=== PATIENT | male | born 1945 | race Caucasian/White ===

== ENCOUNTER 2022-04-13 15:31 | Inpatient (IN) | payer MEDICARE ==
[~2022-04-13] VITALS: Ht 175.3 cm; Wt 83.9 kg
[~2022-04-13 15:31] MED LIST: CLOPIDOGREL75 MG PO; CRESTOR20 MG PO; LISINOPRIL20 MG PO; VITAMIN D21250 MCG PO
[2022-04-13 17:35] LABS: RED BLOOD COUNT 3.89 M/UL (4.20-5.50); WHITE BLOOD COUNT 10.1 K/UL (4.5-11.0)
[2022-04-13 17:58] LABS: BUN/CREATININE RATIO 22 (0-10)
[2022-04-14 06:50] LABS: HEMOGLOBIN 11.6 gm/dl (14.0-17.5); RED BLOOD COUNT 3.74 M/UL (4.20-5.50); WHITE BLOOD COUNT 7.7 K/UL (4.5-11.0)
[2022-04-14 07:20] LABS: BUN/CREATININE RATIO 23 (0-10)
[2022-04-15 12:13] LABS: HEMOGLOBIN 11.1 gm/dl (14.0-17.5); RED BLOOD COUNT 3.57 M/UL (4.20-5.50)
[2022-04-15 12:36] LABS: BUN/CREATININE RATIO 31 (0-10)
[2022-04-15] MEDS ORDERED: ASCORBIC ACID500 MG PO (18:25)
[2022-04-15] MEDS ORDERED: AMLODIPINE BESY10 MG PO (18:25)
[2022-04-15] MEDS ORDERED: OMEPRAZOLE20 MG PO (18:27)
[2022-04-15] MEDS ORDERED: METFORMIN HCL500 MG PO (18:27)
[2022-04-15] MEDS ORDERED: CETIRIZINE HCL10 MG PO (18:28)
[2022-04-15] MEDS ORDERED: SERTRALINE HCL100 MG PO (18:28)
[2022-04-15] MEDS ORDERED: DONEPEZIL HCL10 MG PO (18:29)
[2022-04-15] MEDS ORDERED: NAMENDA10 MG PO (18:29)
[2022-04-15] MEDS ORDERED: LISINOPRIL40 MG PO (18:30)
[2022-04-15] MEDS ORDERED: BREO ELLIPTA 11 EACH INH (18:31)
[2022-04-15] MEDS ORDERED: OLANZAPINE5 MG PO (18:31)
[2022-04-15] MEDS ORDERED: ASPIRIN EC81 MG PO (18:31)
[2022-04-15] MEDS ORDERED: ALBUTEROL2.5 MG/3 M INH (18:32)
[2022-04-15] MEDS ORDERED: FERROUS SULFAT324 MG PO (18:32)
[2022-04-16 06:39] LABS: HEMOGLOBIN 10.5 gm/dl (14.0-17.5); RED BLOOD COUNT 3.39 M/UL (4.20-5.50)
[2022-04-16 06:49] LABS: WHITE BLOOD COUNT 6.8 K/UL (4.5-11.0)
[2022-04-16 07:03] LABS: BUN/CREATININE RATIO 23 (0-10)
--- NOTE | 2022-04-16 11:09 | NUR ---
PATIENT VERY DROWSY AND HARD TO AROUSE THIS AM. [employer] BUILDER STATED THAT PATIENT WAS MUCH MORE ALERT YESTERDAY DAY. DR. NICHOLS MADE AWARE OF PATIENT STATUS. STATED SHE WOULD TAKE A LOOK AT HIS MEDS AND PUT IN NEW ORDERS IF NECESSARY. WILL CONTINUE TO MONITOR PATIENT.
[2022-04-17 06:27] LABS: HEMOGLOBIN 10.3 gm/dl (14.0-17.5); RED BLOOD COUNT 3.29 M/UL (4.20-5.50); WHITE BLOOD COUNT 6.4 K/UL (4.5-11.0)
[2022-04-17 06:47] LABS: BUN/CREATININE RATIO 19 (0-10)
[2022-04-18 02:59] LABS: HEMOGLOBIN 10.5 gm/dl (14.0-17.5); RED BLOOD COUNT 3.31 M/UL (4.20-5.50); WHITE BLOOD COUNT 7.5 K/UL (4.5-11.0)
[2022-04-18 03:18] LABS: BUN/CREATININE RATIO 23 (0-10)
[2022-04-19 06:21] LABS: RED BLOOD COUNT 3.57 M/UL (4.20-5.50); WHITE BLOOD COUNT 6.7 K/UL (4.5-11.0)
[2022-04-19 07:24] LABS: BUN/CREATININE RATIO 37 (0-10)
[2022-04-21 05:59] LABS: HEMOGLOBIN 9.5 gm/dl (14.0-17.5); WHITE BLOOD COUNT 7.3 K/UL (4.5-11.0)
[2022-04-21 06:00] LABS: RED BLOOD COUNT 3.01 M/UL (4.20-5.50)
[2022-04-21 06:55] LABS: BUN/CREATININE RATIO 32 (0-10)
[2022-04-22 06:39] LABS: HEMOGLOBIN 9.7 gm/dl (14.0-17.5); RED BLOOD COUNT 3.14 M/UL (4.20-5.50); WHITE BLOOD COUNT 6.1 K/UL (4.5-11.0)
[2022-04-22 07:25] LABS: BUN/CREATININE RATIO 27 (0-10)
[2022-04-23 06:59] LABS: BUN/CREATININE RATIO 25 (0-10)
== END 2022-04-23 12:55 | disposition home health service (06) | DRG 689 ==
LOC: ER1 15:31 → MED SURG 4 22:15 → CDU 22:15 → MED SURG 4 04-14 00:51
PROVIDERS: Internal Medicine; Physician Assistant; ADMIT Internal Medicine
PROC: B24BZZZ Ultrasonography of Heart with Aorta (ICD-10-PCS; principal; 2022-04-20)
DX: N30.00 Acute cystitis without hematuria (principal); G93.41 Metabolic encephalopathy; J18.9 Pneumonia, unspecified organism; Z16.21 Resistance to vancomycin; J44.0 Chronic obstructive pulmonary disease with (acute) lower respiratory infection; F03.90 Unspecified dementia, unspecified severity, without behavioral disturbance, psychotic disturbance, mood disturbance, and anxiety; I25.10 Atherosclerotic heart disease of native coronary artery without angina pectoris; E11.9 Type 2 diabetes mellitus without complications; L89.329 Pressure ulcer of left buttock, unspecified stage; L89.319 Pressure ulcer of right buttock, unspecified stage; L89.122 Pressure ulcer of left upper back, stage 2; L89.112 Pressure ulcer of right upper back, stage 2; R13.10 Dysphagia, unspecified; R26.89 Other abnormalities of gait and mobility; I10 Essential (primary) hypertension; Z20.822 Contact with and (suspected) exposure to COVID-19; F32.A Depression, unspecified; Z86.73 Personal history of transient ischemic attack (TIA), and cerebral infarction without residual deficits; Z99.81 Dependence on supplemental oxygen; Z98.890 Other specified postprocedural states; Z80.8 Family history of malignant neoplasm of other organs or systems; Z79.899 Other long term (current) drug therapy; Z79.82 Long term (current) use of aspirin
CPT/HCPCS: ECHO; 0240U; 36415; 36600; 70450; 70551; 71045; 80048; 80053; 80076; 81001; 82140; 82550; 82553; 82803; 82962; 83605; 83735; 84484; 85025; 85027; 87040; 87077; 87086; 87186; 92526; 92610; 93005; 93306; 93880; 94640; 94664; 94760; 96365; 96366; 96368; 96372; 96375; 96376; 97110-GP-CQ; 97162; 97166; 97530; 97530-GP-CQ; 99285; G0378; J0696; J0878; J1650; J3370; J7070

== ENCOUNTER 2022-05-25 14:28 | Inpatient (IN) | payer MEDICARE ==
[~2022-05-25] VITALS: Ht 195.6 cm; Wt 83.9 kg
[~2022-05-25 14:28] MED LIST changes: +ALBUTEROL2.5 MG/3 M INH; +AMLODIPINE BESY10 MG PO; +ASCORBIC ACID500 MG PO; +ASPIRIN EC81 MG PO; +BREO ELLIPTA 11 EACH INH; +CETIRIZINE HCL10 MG PO; +DONEPEZIL HCL10 MG PO; +FERROUS SULFAT324 MG PO; +LISINOPRIL40 MG PO; +METFORMIN HCL500 MG PO; +NAMENDA10 MG PO; +OLANZAPINE5 MG PO; +OMEPRAZOLE20 MG PO; +SERTRALINE HCL100 MG PO
[2022-05-25 16:20] LABS: HEMOGLOBIN 13.1 gm/dl (14.0-17.5); RED BLOOD COUNT 4.18 M/UL (4.20-5.50); WHITE BLOOD COUNT 11.4 K/UL (4.5-11.0)
[2022-05-25 16:53] LABS: BUN/CREATININE RATIO 19 (0-10)
[2022-05-26 08:29] LABS: BUN/CREATININE RATIO 20 (0-10)
[2022-05-26 09:13] LABS: RED BLOOD COUNT 3.81 M/UL (4.20-5.50); WHITE BLOOD COUNT 11.7 K/UL (4.5-11.0)
[2022-05-26] MEDS ORDERED: TRAMADOL HCL50 MG PO (11:47)
[2022-05-26] MEDS ORDERED: PRAVASTATIN SOD80 MG PO (11:50)
[2022-05-26] MEDS ORDERED: GLIPIZIDE ER5 MG PO (11:51)
[2022-05-26] MEDS ORDERED: MIRALAX17 GM PO (12:20)
[2022-05-26] MEDS ORDERED: HUMALOG100 UNIT/3 SC (12:23)
[2022-05-27 07:38] LABS: HEMOGLOBIN 10.2 gm/dl (14.0-17.5); WHITE BLOOD COUNT 9.2 K/UL (4.5-11.0)
[2022-05-27 07:53] LABS: RED BLOOD COUNT 3.4 M/UL (4.20-5.50)
[2022-05-27 08:05] LABS: BUN/CREATININE RATIO 15 (0-10)
[2022-05-28 04:01] LABS: HEMOGLOBIN 10.5 gm/dl (14.0-17.5); RED BLOOD COUNT 3.4 M/UL (4.20-5.50); WHITE BLOOD COUNT 8.2 K/UL (4.5-11.0)
[2022-05-28 04:22] LABS: BUN/CREATININE RATIO 13 (0-10)
== END 2022-05-28 15:36 | disposition home or self-care (01) | DRG 871 ==
LOC: ER1 14:28 → MED SURG 4 18:09 → CDU 18:09 → MED SURG 4 05-26 15:45
PROVIDERS: Internal Medicine; Physician Assistant; ADMIT Internal Medicine
DX: A41.9 Sepsis, unspecified organism (principal); G93.41 Metabolic encephalopathy; N30.00 Acute cystitis without hematuria; J96.11 Chronic respiratory failure with hypoxia; F32.A Depression, unspecified; R53.81 Other malaise; K21.9 Gastro-esophageal reflux disease without esophagitis; L89.152 Pressure ulcer of sacral region, stage 2; E78.5 Hyperlipidemia, unspecified; F03.90 Unspecified dementia, unspecified severity, without behavioral disturbance, psychotic disturbance, mood disturbance, and anxiety; E11.9 Type 2 diabetes mellitus without complications; R65.20 Severe sepsis without septic shock; R13.10 Dysphagia, unspecified; E86.0 Dehydration; J44.9 Chronic obstructive pulmonary disease, unspecified; I25.10 Atherosclerotic heart disease of native coronary artery without angina pectoris; Z86.73 Personal history of transient ischemic attack (TIA), and cerebral infarction without residual deficits; Z99.81 Dependence on supplemental oxygen; Z74.01 Bed confinement status; Z80.9 Family history of malignant neoplasm, unspecified; Z79.01 Long term (current) use of anticoagulants; Z79.82 Long term (current) use of aspirin; Z88.1 Allergy status to other antibiotic agents; Z88.0 Allergy status to penicillin; Z88.8 Allergy status to other drugs, medicaments and biological substances; I25.2 Old myocardial infarction
CPT/HCPCS: 36415; 36600; 51701; 70450; 71045; 80053; 81001; 82550; 82553; 82803; 82962; 83605; 83735; 84484; 85025; 87040; 87086; 92526; 92610; 93005; 94640; 94664; 94760; 96374; 99285; J0878